=== PATIENT | female | born 1950 | race Caucasian/White ===

== ENCOUNTER 2019-09-09 13:48 | Outpatient (CLI) | payer OTHER ==
[~2019-09-09 13:48] MED LIST: CIPRO500 MG PO; ESTR0.624; PROTONIX40 MG PO; SYNTHROID112 MCG; ULTRACET PO; WELLBUTRIN XL300 MG
== END 2019-09-09 14:06 | disposition home or self-care (01) ==
LOC: MAMO-SONO 13:48 → RAD 13:48 → MAMO-SONO 14:15
DX: Z12.31 Encounter for screening mammogram for malignant neoplasm of breast (principal); Z87.898 Personal history of other specified conditions; R07.89 Other chest pain

== ENCOUNTER 2020-01-23 11:22 | Outpatient (CLI) | payer OTHER ==
[2020-01-23] MEDS ORDERED: PAXIL CR37.5 MG (12:34)
[2020-01-23] MEDS ORDERED: ACID REDUCER20 M1 (12:35)
[2020-01-24] MEDS ORDERED: PERCOCET 5-3251 EACH PO ×2 (13:04)
[2020-01-24] MEDS ORDERED: ALEVE220 M1 PO ×2 (13:04)
[2020-01-24] MEDS ORDERED: DUI500 PO ×2 (13:04)
== END 2020-01-23 11:33 | disposition home or self-care (01) ==
LOC: RAD 11:22
DX: S52.322A Displaced transverse fracture of shaft of left radius, initial encounter for closed fracture (principal)

== ENCOUNTER 2020-01-23 12:26 | Emergency (ER) | payer OTHER ==
[~2020-01-23] VITALS: Ht 172.7 cm; Wt 90.7 kg
[2020-01-23] MEDS ORDERED: PAXIL CR37.5 MG (12:34)
[2020-01-23] MEDS ORDERED: ACID REDUCER20 M1 (12:35)
[2020-01-24] MEDS ORDERED: DUI500 PO ×2 (13:04)
[2020-01-24] MEDS ORDERED: PERCOCET 5-3251 EACH PO ×2 (13:04)
[2020-01-24] MEDS ORDERED: ALEVE220 M1 PO ×2 (13:04)
== END 2020-01-23 20:52 | disposition home or self-care (01) ==
LOC: ER 12:26
DX: S52.592A Other fractures of lower end of left radius, initial encounter for closed fracture (principal); W01.0XXA Fall on same level from slipping, tripping and stumbling without subsequent striking against object, initial encounter; Z01.818 Encounter for other preprocedural examination; Y93.89 Activity, other specified; Y92.89 Other specified places as the place of occurrence of the external cause; Y99.8 Other external cause status

== ENCOUNTER 2020-01-24 07:00 | Day surgery (SDC) | payer OTHER ==
[~2020-01-24 07:00] MED LIST changes: +ACID REDUCER20 M1; +PAXIL CR37.5 MG
[2020-01-24] MEDS ORDERED: PERCOCET 5-3251 EACH PO ×2 (13:04)
[2020-01-24] MEDS ORDERED: DUI500 PO ×2 (13:04)
[2020-01-24] MEDS ORDERED: ALEVE220 M1 PO ×2 (13:04)
== END 2020-01-24 13:00 | disposition home or self-care (01) ==
LOC: CIR.AMB 07:00 → SURH 10:38 → O/R 10:57 → EDSTATUS 13:00 → CIR.AMB 13:00 → O/R 15:25
DX: S52.532A Colles' fracture of left radius, initial encounter for closed fracture (principal); M81.0 Age-related osteoporosis without current pathological fracture; E03.8 Other specified hypothyroidism
CPT/HCPCS: 25609; C1776

== ENCOUNTER 2024-06-01 10:51 | Outpatient (CLI) | payer OTHER ==
[~2024-06-01 10:51] MED LIST changes: +ALEVE220 M1 PO; +DUI500 PO; +PERCOCET 5-3251 EACH PO
== END 2024-06-01 10:53 | disposition home or self-care (01) ==
LOC: MAMO-SONO 10:51
PROVIDERS: ATTEND Specialist
DX: N61.0 Mastitis without abscess (principal); Z12.31 Encounter for screening mammogram for malignant neoplasm of breast

== ENCOUNTER 2024-06-22 09:07 | Outpatient (CLI) | payer OTHER | END 2024-06-22 09:17 | disposition home or self-care (01) | LOC: TOM 09:07 | PROVIDERS: ATTEND Otolaryngology Otology & Neurotology | DX: H90.42 Sensorineural hearing loss, unilateral, left ear, with unrestricted hearing on the contralateral side (principal) ==

== ENCOUNTER 2024-07-01 09:00 | Outpatient (CLI) | payer OTHER | END 2024-07-01 09:24 | disposition home or self-care (01) | LOC: MRI 09:00 | PROVIDERS: ATTEND Specialist | DX: R10.2 Pelvic and perineal pain (principal); R19.00 Intra-abdominal and pelvic swelling, mass and lump, unspecified site | CPT/HCPCS: 72197; 74183; Q9965 ==